=== PATIENT | female | born 1955 | race Caucasian/White ===

== ENCOUNTER 2016-07-26 08:58 | Outpatient (CLI) | payer BC | END 2016-07-26 11:28 | LOC: D.MAMMO 08:58 | DX: Z12.31 Encounter for screening mammogram for malignant neoplasm of breast (principal) ==

== ENCOUNTER → 2017-11-30 15:33 | Outpatient (CLI) | payer BC | END | disposition home or self-care (01) | LOC: D.MRI 15:33 | DX: M54.2 Cervicalgia (principal); M25.512 Pain in left shoulder ==

== ENCOUNTER 2018-07-24 08:00 | Outpatient (CLI) | payer BC | END 2018-07-24 23:59 | disposition home or self-care (01) | LOC: D.MAMMO 08:00 | PROVIDERS: ATTEND Family Medicine | DX: Z12.31 Encounter for screening mammogram for malignant neoplasm of breast (principal) ==

== ENCOUNTER 2019-10-29 08:00 | Outpatient (CLI) | payer BC | END 2019-10-29 14:15 | disposition home or self-care (01) | LOC: D.MAMMO 08:00 | PROVIDERS: ATTEND Family Medicine | DX: Z12.31 Encounter for screening mammogram for malignant neoplasm of breast (principal) ==